=== PATIENT | female | born 1980 | race Caucasian/White ===

== ENCOUNTER 2017-01-08 13:01 | Emergency (ER) | payer OTHER ==
[2017-01-08 13:24] VITALS: BP 153/114
== END 2017-01-08 15:09 | disposition left against medical advice (07) ==
LOC: ED 13:01
DX: Z53.21 Procedure and treatment not carried out due to patient leaving prior to being seen by health care provider (principal)

== ENCOUNTER 2017-01-13 13:37 | Emergency (ER) | payer OTHER ==
[~2017-01-13] VITALS: Ht 170.2 cm; Wt 138.3 kg
[2017-01-13 17:51] VITALS: BP 120/71
== END 2017-01-13 18:41 | disposition home or self-care (01) ==
LOC: ED 13:37
DX: J02.9 Acute pharyngitis, unspecified (principal); J98.01 Acute bronchospasm; Z88.5 Allergy status to narcotic agent; Z88.1 Allergy status to other antibiotic agents; Z79.51 Long term (current) use of inhaled steroids
CPT/HCPCS: J7512; J7613; J7644

== ENCOUNTER 2017-06-15 17:00 | Emergency (ER) | payer OTHER ==
[~2017-06-15] VITALS: Ht 170.2 cm; Wt 136.1 kg
[2017-06-15 17:23] VITALS: BP 144/109
== END 2017-06-15 19:01 | disposition left against medical advice (07) ==
LOC: ED 17:00
DX: Z53.21 Procedure and treatment not carried out due to patient leaving prior to being seen by health care provider (principal)

== ENCOUNTER 2019-07-25 08:58 | Emergency (ER) | payer SELFPAY ==
[~2019-07-25] VITALS: Ht 170.2 cm; Wt 140.6 kg
[2019-07-25 10:02] VITALS: Ht 170.2 cm; Wt 140.6 kg
[2019-07-25 12:42] VITALS: BP 138/82
== END 2019-07-25 12:42 | disposition home or self-care (01) ==
LOC: ED 08:58
DX: S56.112A Strain of flexor muscle, fascia and tendon of left index finger at forearm level, initial encounter (principal); W22.8XXA Striking against or struck by other objects, initial encounter; Y93.89 Activity, other specified; Y92.89 Other specified places as the place of occurrence of the external cause; Y99.8 Other external cause status
CPT/HCPCS: A4570